=== PATIENT | male | born 1950 | race Caucasian/White ===

== ENCOUNTER → 2017-10-11 | Outpatient (CLI) | payer MEDICARE ==
[2017-10-11 12:38] LABS: Creatine Kinase 100 U/L (55-170); Non-African American GFR(MDRD) 52 (>60 ml/min/1.73 sqM)
--- NOTE | 2017-10-11 14:25 | MR ---
EXAMINATION TYPE: MR brain wo/w con DATE OF EXAM: 10/11/2017 COMPARISON: NONE HISTORY: Mild cognitive impairment TECHNIQUE: Multiplanar, multisequence images of the brain and brainstem is performed without and with IV contras t, utilizing 9.5 mL intravenous Gadavist . FINDINGS: Diffusion weighted images demonstrate no evidence of a recent infarct or other diffusion ab normality. There is no worrisome extra-axial fluid collection. The ventricular system and cisternal spaces are normal in size and appearance. The brain volume is age appropriate. There are scattered foci of T2 hyperintensity throughout the deep and periventricular white matter with at least 70 lesio ns felt present. Some confluent appearance is noted. Midline structures demonstrate normal morphology. The craniocervical junction appears within normal limits. Post contrast images demonstrate no abnormal enhancement. The dural venous sinuses appear pa tent. Suspect small mucous retention cyst or polyp right ethmoid sinus on axial image 10. The visuali zed sinuses otherwise are clear and the globes are intact. Minimal patchy fluid right mastoid air esa ls is present on axial image 7 correlate to exclude mild right-sided mastoiditis IMPRESSION: Fairly severe nonspecific white matter changes most likely on basis of product of chronic small vessel ischemic change in patient of this age.
== END | disposition home or self-care (01) ==
LOC: RADMRIMAIN 11:59
PROVIDERS: ATTEND Family Medicine
DX: R90.89 Other abnormal findings on diagnostic imaging of central nervous system (principal); G31.84 Mild cognitive impairment of uncertain or unknown etiology
CPT/HCPCS: 82565; 82550; 70553; 36415; A9581